=== PATIENT | male | born 1980 | race Caucasian/White ===

== ENCOUNTER 2016-09-19 17:50 | Emergency (ER) | payer OTHER ==
[~2016-09-19] VITALS: Ht 175.3 cm; Wt 109.0 kg
[2016-09-19 17:56] VITALS: TEMP 36.7; Ht 175.3 cm; Wt 109.0 kg
[2016-09-19] MEDS ORDERED: ONDANSETRON INJ 2 MG/ML 2 ML VIAL IV STA (18:05)
[2016-09-19] MEDS ORDERED: SODIUM CHLORIDE 0.9% 1000ML 2,000 ML IV STA (18:05)
[2016-09-19] MEDS ORDERED: MoRPHine SULFATE 10 MG/ML CARP/VIAL IV STA (18:05)
[2016-09-19] MEDS ORDERED: HYDROmorphone INJ 1 MG/ML SYR IV STA ×2 (18:41→19:19)
[2016-09-19] MEDS ORDERED: ASPI81TA28 PO (18:44)
[2016-09-19] MEDS ORDERED: KETO10TA PO ×2 (18:44→19:47)
[2016-09-19] MEDS ORDERED: METO50TA7 PO (18:44)
[2016-09-19 18:47] LABS: BASO % 0.5 %; BASO ABS # 0.06 K/uL (0-0.2); COMPLETE YES; EOS % 2.5 %; HEMATOCRIT 51.4 % (42-52); IG% 0.5 %; LYMPH % 34.1 %; LYMPH ABS # 3.93 K/uL (1.2-3.4); MEAN CELL VOLUME 97.3 fL (80-100); MEAN CORPUSCULAR HEMOGLOBIN 34.5 pg (25-34); MEAN CORPUSCULAR HGB CONC 35.4 g/dl (32-36); MEAN PLATELET VOLUME 10.1 fL (7.4-10.4); MONO % 9.7 %; NEUT % 52.7 %; PLATELET COUNT 254 K/uL (130-400); RED BLOOD COUNT 5.28 M/uL (4.7-6.1); WHITE BLOOD COUNT 11.51 K/uL (4.8-10.8)
[2016-09-19 18:52] LABS: URINE APPEARANCE CLOUDY (CLEAR); URINE BILIRUBIN NEG (NEG); URINE COLOR DK YELLOW; URINE EPITHELIAL CELL AUTO >30 /lpf (0-5); URINE NITRITE NEG (NEG); URINE SPECIFIC GRAVITY 1.039 (1.000-1.030); UROBILINOGEN NEG (NEG)
[2016-09-19 18:54] LABS: MANUAL MICROSCOPIC REQUIRED? NO; REVIEW REQ? YES
[2016-09-19 19:07] LABS: BUN/CREATININE RATIO 15.7 (10-20); CREATININE 1.2 mg/dl (0.60-1.40)
--- NOTE | 2016-09-19 19:19 | DIAGNOSTIC IMAGING REPORT ---
KUB CLINICAL HISTORY: EVALUATE FOR OBSTRUCTION/HISTORY OF STONES COMPARISON STUDY: No previous studies for comparison. FINDINGS: The soft tissues, psoas shadows, renal outlines and intestinal gas pattern appear normal. There is no evidence for bowel obstruction. No abnormal abdominal calcifications are seen. IMPRESSION: Normal study. Electronically signed by: Tyree Isable M.D. 09/19/2016 7:17 PM Dictated Date/Time: 09/19/2016 7:17 PM
[2016-09-19 19:56] VITALS: BP 187/119; PULSE 74; O2SAT 95
--- NOTE | 2016-09-19 21:33 | EMERGENCY ROOM VISIT NOTE ---
History First contact with patient: 18:02 Chief Complaint: KIDNEY STONE Stated Complaint: PAIN IN SIDE AND GROIN History of Present Illness The patient is a 35 year old male who presents to the Emergency Room with complaints of a persistent right-sided kidney pain. The patient reports a history of kidney stones. His current episode started around 2 AM. He did pass 2 stones this morning, and his pain resolved. The patient reports that he drove here from [place] to shop for [employer] and developed sudden onset of right flank pain approximately one hour ago. He reports that the pain is not improving. The patient is crying under the management of Dr. Quinteros, urologist in [place]. He denies any vomiting, fever or recent urinary symptoms. He rates his discomfort a 6 out of 10 in triage. Review of Systems HEENT: Denies dizziness, visual problems, hearing loss, tinnitus. Denies difficulty swallowing or oral lesions. PULMONARY: Denies cough, shortness of breath, sputum production or hemoptysis. CARDIOVASCULAR: Denies chest pain, palpitations, dyspnea on exertion, orthopnea or peripheral edema. GASTROINTESTINAL: Denies diarrhea, constipation or anterior abdominal pain. Reports right flank pain. GENITOURINARY: Denies recent dysuria, frequency, urgency or nocturia. NEUROLOGIC: Denies history of epilepsy, CVA, TIA or chronic headaches. MUSCULOSKELETAL: Denies history of joint tenderness/swelling. SKIN: Denies rashes or lesions. PSYCHIATRIC: Denies history of depression or mental illness. ENDOCRINE: Denies history of diabetes or thyroid disorders. Past Medical/Surgical History Medical Problems: (1) Kidney stones Surgical Problems: (1) History of appendectomy Family History Patient reports no known family medical history. Social History Smoking Status: Current Every Day Smoker Alcohol Use: occasionally Marital Status: Housing Status: lives with significant other Current/Historical Medications Scheduled Aspirin (Aspirin Ec), 81 MG PO DAILY Metoprolol Succ (Toprol Xl) (Toprol-Xl), 50 MG PO DAILY Scheduled PRN Ketorolac (Toradol), 10 MG PO TID PRN for Pain Ketorolac Tromethamine (Toradol), 10 MG PO Q8 PRN for Pain Allergies Coded Allergies: Penicillins (Verified Allergy, Unknown, ., 11/11/14) Physical Exam Vital Signs Date Time Temp Pulse Resp B/P (MAP) Pulse Ox O2 Delivery O2 Flow Rate FiO2 09/19/16 19:56 74 18 187/119 95 09/19/16 19:25 75 20 174/142 95 Room Air 09/19/16 17:56 36.7 118 18 179/132 95 Room Air Physical Exam CONSTITUTIONAL: Healthy and well nourished. Alert and oriented X 3 with positive affect. Patient appears in severe discomfort from pain. HEENT: Normocephalic, atraumatic. Pupils equal, round and reactive. No scleral icterus or conjunctival injection/pallor. NECK: Full active range of motion without discomfort. RESPIRATORY: Clear to auscultation bilaterally with no wheezing, crackles, rhonchi or stridor. CARDIOVASCULAR: Regular rate and rhythm with no murmurs, rubs or gallops. GASTROINTESTINAL: Bowel sounds present in all quadrants. Abdomen is soft and nontender to palpation. Negative CVA tenderness. MUSCULOSKELETAL: Full range of motion of all joints without discomfort. INTEGUMENTARY: No rash or other significant dermatologic conditions noted. HEMATOLOGIC: No ecchymosis or petechiae. NEUROLOGIC: No focal neurologic deficits noted. Medical Decision & Procedures ER Provider Diagnostic Interpretation: My interpretation of a KUB x-ray does not show any obvious ureteral calculi, obstructive pattern or free air. Radiologist report is as follows: KUB CLINICAL HISTORY: EVALUATE FOR OBSTRUCTION/HISTORY OF STONES COMPARISON STUDY: No previous studies for comparison. FINDINGS: The soft tissues, psoas shadows, renal outlines and intestinal gas pattern appear normal. There is no evidence for bowel obstruction. No abnormal abdominal calcifications are seen. IMPRESSION: Normal study. Laboratory Results 09/19/16 18:15 Red Blood Count 5.28, Mean Corpuscular Volume 97.3, Mean Corpuscular Hemoglobin 34.5, Mean Corpuscular Hemoglobin Concent 35.4, Mean Platelet Volume 10.1, Neutrophils (%) (Auto) 52.7, Lymphocytes (%) (Auto) 34.1, Monocytes (%) (Auto) 9.7, Eosinophils (%) (Auto) 2.5, Basophils (%) (Auto) 0.5, Neutrophils # (Auto) 6.05, Lymphocytes # (Auto) 3.93, Monocytes # (Auto) 1.12, Eosinophils # (Auto) 0.29, Basophils # (Auto) 0.06 09/19/16 18:15 Test 09/19/16 18:09/19/16 18:20 White Blood Count 11.51 K/uL (4.8-10.8) Red Blood Count 5.28 M/uL (4.7-6.1) Hemoglobin 18.2 g/dL (14.0-18.0) Hematocrit 51.4 % (42-52) Mean Corpuscular Volume 97.3 fL (80-100) Mean Corpuscular Hemoglobin 34.5 pg (25-34) Mean Corpuscular Hemoglobin Concent 35.4 g/dl (32-36) Platelet Count 254 K/uL (130-400) Mean Platelet Volume 10.1 fL (7.4-10.4) Neutrophils (%) (Auto) 52.7 % Lymphocytes (%) (Auto) 34.1 % Monocytes (%) (Auto) 9.7 % Eosinophils (%) (Auto) 2.5 % Basophils (%) (Auto) 0.5 % Neutrophils # (Auto) 6.05 K/uL (1.4-6.5) Lymphocytes # (Auto) 3.93 K/uL (1.2-3.4) Monocytes # (Auto) 1.12 K/uL (0.11-0.59) Eosinophils # (Auto) 0.29 K/uL (0-0.5) Basophils # (Auto) 0.06 K/uL (0-0.2) RDW Standard Deviation 47.2 fL (36.4-46.3) RDW Coefficient of Variation 13.2 % (11.5-14.5) Immature Granulocyte % (Auto) 0.5 % Immature Granulocyte # (Auto) 0.06 K/uL (0.00-0.02) Anion Gap 11.0 mmol/L (3-11) Est Creatinine Clear Calc Drug Dose 103.6 ml/min Estimated GFR () 89.6 Estimated GFR (Non- 77.3 BUN/Creatinine Ratio 15.7 (10-20) Calcium Level 9.0 mg/dl (8.5-10.1) Total Bilirubin 0.2 mg/dl (0.2-1) Aspartate Amino Transf (AST/SGOT) 30 U/L (15-37) Alanine Aminotransferase (ALT/SGPT) 77 U/L (12-78) Alkaline Phosphatase 109 U/L (45-117) Total Protein 8.8 gm/dl (6.4-8.2) Albumin 4.4 gm/dl (3.4-5.0) Globulin 4.4 gm/dl (2.5-4.0) Albumin/Globulin Ratio 1.0 (0.9-2) Lipase 302 U/L (73-393) Chemistry Specimen Hemolysis Urine Color DK YELLOW Urine Appearance CLOUDY (CLEAR) Urine pH 5.0 (4.5-7.5) Urine Specific [place] 1.039 (1.000-1.030) Urine Protein 2+ (NEG) Urine Glucose (UA) NEG (NEG) Urine Ketones TRACE (NEG) Urine Occult Blood 3+ (NEG) Urine Nitrite NEG (NEG) Urine Bilirubin NEG (NEG) Urine Urobilinogen NEG (NEG) Urine Leukocyte Esterase NEG (NEG) Urine WBC (Auto) 5-10 /hpf (0-5) Urine RBC (Auto) >30 /hpf (0-4) Urine Hyaline Casts (Auto) 1-5 /lpf (0-5) Urine Epithelial Cells (Auto) >30 /lpf (0-5) Urine Bacteria (Auto) NEG (NEG) Urine Pathogenic Casts /lpf (0) The above labs were reviewed. Urinalysis shows a contaminated sample, however there is 3+ hematuria and no nitrite/leukocyte esterase. Further lab work shows a mild leukocytosis no left shift. Bandemia is present. BUN is elevated at 19 with a creatinine of 1.2. Glucose is 118. Medications Administered Medications (Trade) Dose Ordered Sig/Ronn Route Start Time Stop Time Status Last Admin Dose Admin Morphine Sulfate (MoRPHine SULFATE INJ) 8 mg NOW STAT IV 09/19/16 18:05 09/19/16 18:07 DC 09/19/16 18:05 8 MG Ondansetron HCl (Zofran Inj) 4 mg NOW STAT IV 09/19/16 18:05 09/19/16 18:08 DC 09/19/16 18:05 4 MG Sodium Chloride 2,000 ml @ 999 mls/hr Q2H1M STAT IV 09/19/16 18:05 09/19/16 20:05 DC 09/19/16 18:05 999 MLS/HR Hydromorphone HCl (Dilaudid Inj) 1 mg NOW STAT IV 09/19/16 18:41 09/19/16 18:42 DC 09/19/16 18:41 1 MG Hydromorphone HCl (Dilaudid Inj) 1 mg NOW STAT IV 09/19/16 19:19 09/19/16 19:20 DC 09/19/16 19:40 1 MG Procedure 1. IV hydration: The patient received a normal saline 2 L bolus 2. IV medications: The patient was initially administered morphine 8 mg and Zofran 4 mg IVP. If no improvement in pain, the patient was administered Dilaudid 1 mg IVP. He was administered an additional Dilaudid 1 mg IVP before his pain significantly dropped off. ED Course Patient history and physical exam were performed. Nurse's notes were reviewed. Vital signs were reviewed, showing a blood pressure 179/132. Pulse rate is 118 with an O2 saturation of 95% on room air. I did review a portion of prior medical records, showing that the patient has documentation and imaging studies showing evidence for punctate renal calculi. IV access was established, and labs were drawn. The patient was hydrated with normal saline, and received IV medications as discussed in the previous Procedure section. Review of labs do not show any acute findings. Urinalysis shows hematuria. This was a contaminated sample, however there is no obvious evidence for infection. A KUB x-ray did not show any ureteral calculi. Patient received several rounds of morphine and Dilaudid. The patient was going to the bathroom frequently toward the end of his evaluation. He eventually walked out of the bathroom, diaphoretic, but stating "I think I passed it." He did report significant improving pain and requested discharge home. The patient was encouraged to follow-up with his urologist for any recurrent pain. He was instructed to seek further emergent reevaluation for uncontrollable pain, vomiting or developing fever. The patient refused any prescription narcotics, but did request a prescription refill for his Toradol. He was prescribed Toradol 10 mg every 8 hours as needed for pain. The patient was happy with plan of care, voiced understanding of all discharge instructions , and denied any significant pain at the time of discharge. The patient was advised of his elevated blood pressure reading. He reports that he did not take his blood pressure medication this morning because of the pain, and suspects that his pressure is elevated as well because of pain. I did encourage him to his blood pressure rechecked by his family doctor. Medical Decision The patient does have a documented prior history of kidney stones. The patient was in notable discomfort, and reports that his pain is similar to all prior episodes. The patient is currently afebrile. His urinalysis does show evidence for hematuria. He has a mild leukocytosis, likely stress induced. Glucose is also elevated. The patient does not have any acute findings on KUB, his symptoms are most consistent with renal colic. Do not suspect any additional intra-abdominal etiology such as appendicitis, diverticulitis, cholecystitis, hepatitis or peritonitis. He has no CVA tenderness to suggest pyelonephritis. Impression Primary Impression: Renal colic on right side Additional Impression: Hypertension Departure Information Prescriptions Ketorolac (Toradol) 10 Mg Tab 10 MG PO TID Y for Pain, #30 TAB Prov: Jose Alberto Carrera PA 09/19/16 Referrals No Doctor, Assigned (PCP) Patient Instructions My [facility] Problem Qualifiers Additional Impression: Hypertension Hypertension type: essential hypertension Qualified Codes: I10 - Essential ( primary) hypertension
== END 2016-09-19 19:52 | disposition home or self-care (01) ==
LOC: C.EDB 17:51 → C.EDC 19:52
DX: N23 Unspecified renal colic (principal); I10 Essential (primary) hypertension; F17.200 Nicotine dependence, unspecified, uncomplicated; Z79.82 Long term (current) use of aspirin

== ENCOUNTER 2016-10-17 12:16 | Emergency (ER) | payer OTHER ==
[~2016-10-17] VITALS: Ht 175.3 cm; Wt 110.0 kg
[~2016-10-17 12:16] MED LIST: ASPI81TA28 PO; KETO10TA PO; METO50TA7 PO
[2016-10-17 12:37] VITALS: Ht 175.3 cm; Wt 110.0 kg
[2016-10-17] MEDS ORDERED: KETOROLAC TROMETHAMINE 30 MG/ML VIAL IV STA (12:48)
[2016-10-17] MEDS ORDERED: SODIUM CHLORIDE 0.9% 1000ML 1,000 ML IV STA (12:48)
[2016-10-17] MEDS ORDERED: ONDANSETRON INJ 2 MG/ML 2 ML VIAL IV STA (12:48)
[2016-10-17 13:09] LABS: BASO % 0.6 %; BASO ABS # 0.05 K/uL (0-0.2); COMPLETE YES; EOS % 2.6 %; HEMATOCRIT 55.4 % (42-52); IG% 0.7 %; LYMPH % 35.5 %; LYMPH ABS # 3.04 K/uL (1.2-3.4); MEAN CELL VOLUME 97.7 fL (80-100); MEAN CORPUSCULAR HGB CONC 33.8 g/dl (32-36); MONO % 9.3 %; NEUT % 51.3 %; PLATELET COUNT 236 K/uL (130-400); RED BLOOD COUNT 5.67 M/uL (4.7-6.1); WHITE BLOOD COUNT 8.57 K/uL (4.8-10.8)
[2016-10-17 13:13] LABS: URINE APPEARANCE CLEAR (CLEAR); URINE BILIRUBIN NEG (NEG); URINE COLOR YELLOW; URINE EPITHELIAL CELL AUTO 0-5 /lpf (0-5); URINE NITRITE NEG (NEG); URINE SPECIFIC GRAVITY 1.022 (1.000-1.030); UROBILINOGEN NEG (NEG); ZZUR CULT IF INDIC CLEAN CATCH NO
[2016-10-17 13:16] LABS: MANUAL MICROSCOPIC REQUIRED? NO; REVIEW REQ? NO
[2016-10-17 13:29] LABS: ALT/SGPT 92 U/L (12-78); BLOOD UREA NITROGEN 17 mg/dl (7-18); CALCIUM 9.4 mg/dl (8.5-10.1); CARBON DIOXIDE 27 mmol/L (21-32); CHLORIDE 104 mmol/L (98-107); GLUCOSE 114 mg/dl (70-99); POTASSIUM 3.8 mmol/L (3.5-5.1); SODIUM 138 mmol/L (136-145)
[2016-10-17 13:32] LABS: ALKALINE PHOSPHATASE 86 U/L (45-117); AST/SGOT 41 U/L (15-37)
--- NOTE | 2016-10-17 13:36 | DIAGNOSTIC IMAGING REPORT ---
ABD/PELVIS WITHOUT FOR STONE CT DOSE: 1791.19 mGy.cm HISTORY: Pain flank pain TECHNIQUE: Multiaxial CT images of the abdomen and pelvis were performed without the use of intravenous and oral contrast according to the standard department stone protocol. COMPARISON STUDY: 11/11/2014 FINDINGS: The lung bases are clear. Moderate hepatomegaly with diffuse fatty infiltration. This is stable compared to the prior exam. Prior cholecystectomy. Pancreas is uniform. Kidneys demonstrate several punctate calcifications. No evidence for hydronephrosis. 1.5 cm nodular density lower pole right kidney unchanged. No evidence for an obstructing urinary tract calculus. Bladder is midline. Bowel pattern throughout is nonobstructive. Small fat-containing periumbilical hernia. No evidence for bowel containment or obstructive characteristics. IMPRESSION: 1. Hepatomegaly with findings of fatty replacement. This is unchanged from the prior exam. 2. Several nonobstructing renal calcifications unchanged from the prior study. 3. No evidence for an obstructing urinary tract calculus. 4. Study is otherwise negative. The above report was generated using voice recognition software. It may contain grammatical, syntax or spelling errors. Electronically signed by: Tyree Isabel M.D. 10/17/2016 1:34 PM Dictated Date/Time: 10/17/2016 1:30 PM
--- NOTE | 2016-10-17 13:56 | EMERGENCY ROOM VISIT NOTE ---
History Report prepared by Prasanthiblyn: Evelyn Pope Under the Supervision of: Dr. Alessandro Ward D.O. First contact with patient: 12:48 Chief Complaint: KIDNEY STONE Stated Complaint: KIDNEY STONE History of Present Illness The patient is a 35 year old male who presents to the Emergency Room with complaints of severe and persistent flank pain starting last night. The patient reports passing 2 stones last night. He has a history of multiple kidney stones and reports similar symptoms today. The patient denies fevers, chills, or any other complaints. Source of History: patient Onset: last night Position: other (flank) Symptom Intensity: severe Timing: other (persistent) Associated Symptoms: No fevers, No chills Review of Systems See HPI for pertinent positives & negatives. A total of 10 systems reviewed and were otherwise negative. Past Medical & Surgical Medical Problems: (1) Kidney stones Surgical Problems: (1) History of appendectomy Family History Patient reports no known family medical history. Social History Smoking Status: Current Every Day Smoker Alcohol Use: occasionally Marital Status: Housing Status: lives with significant other Current/Historical Medications Scheduled Aspirin (Aspirin Ec), 81 MG PO DAILY Metoprolol Succ (Toprol Xl) (Toprol-Xl), 50 MG PO DAILY Scheduled PRN Ketorolac (Toradol), 10 MG PO TID PRN for Pain Allergies Coded Allergies: Metoclopramide (Unverified Allergy, Unknown, ., 10/17/16) Penicillins (Verified Allergy, Unknown, ., 10/17/16) Physical Exam Vital Signs Date Time Temp Pulse Resp B/P (MAP) Pulse Ox O2 Delivery O2 Flow Rate FiO2 10/17/16 14:04 36.6 93 20 157/123 94 10/17/16 13:34 188/111 10/17/16 12:37 36.6 113 22 97 Room Air Physical Exam CONSTITUTIONAL/VITAL SIGNS: Reviewed / noted above. GENERAL: Non-toxic in appearance. INTEGUMENTARY: Warm, dry, and [place]. HEAD: Normocephalic. EYES: without scleral icterus or trauma. ENT/OROPHARYNX: clear and moist. LYMPHADENOPATHY/NECK: Is supple without lymphadenopathy or meningismus. RESPIRATORY: Lungs clear and equal. CARDIOVASCULAR: Regular rate and rhythm. GI/ABDOMEN: Soft and nontender. No organomegaly or pulsatile mass. No rebound or guarding. Normal bowel sounds. EXTREMITIES: Warm and well perfused. BACK: No CVA tenderness. NEUROLOGICAL: Intact without focal deficits. PSYCHIATRIC: normal affect. MUSCULOSKELETAL: Normally developed with good muscle tone. Medical Decision & Procedures ER Provider Diagnostic Interpretation: CT results as stated below per my review and radiologist interpretation: ABD/PELVIS WITHOUT FOR STONE CT DOSE: 1791.19 mGy.cm HISTORY: Pain flank pain TECHNIQUE: Multiaxial CT images of the abdomen and pelvis were performed without the use of intravenous and oral contrast according to the standard department stone protocol. COMPARISON STUDY: 11/11/2014 FINDINGS: The lung bases are clear. Moderate hepatomegaly with diffuse fatty infiltration. This is stable compared to the prior exam. Prior cholecystectomy. Pancreas is uniform. Kidneys demonstrate several punctate calcifications. No evidence for hydronephrosis. 1.5 cm nodular density lower pole right kidney unchanged. No evidence for an obstructing urinary tract calculus. Bladder is midline. Bowel pattern throughout is nonobstructive. Small fat-containing periumbilical hernia. No evidence for bowel containment or obstructive characteristics. IMPRESSION: 1. Hepatomegaly with findings of fatty replacement. This is unchanged from the prior exam. 2. Several nonobstructing renal calcifications unchanged from the prior study. 3. No evidence for an obstructing urinary tract calculus. 4. Study is otherwise negative. The above report was generated using voice recognition software. It may contain grammatical, syntax or spelling errors. Electronically signed by: Tyree Isabel M.D. 10/17/2016 1:34 PM Dictated Date/Time: 10/17/2016 1:30 PM Laboratory Results 10/17/16 12:50 Red Blood Count 5.67, Mean Corpuscular Volume 97.7, Mean Corpuscular Hemoglobin 33.0, Mean Corpuscular Hemoglobin Concent 33.8, Mean Platelet Volume 10.0, Neutrophils (%) (Auto) 51.3, Lymphocytes (%) (Auto) 35.5, Monocytes (%) (Auto) 9.3, Eosinophils (%) (Auto) 2.6, Basophils (%) (Auto) 0.6, Neutrophils # (Auto) 4.40, Lymphocytes # (Auto) 3.04, Monocytes # (Auto) 0.80, Eosinophils # (Auto) 0.22, Basophils # (Auto) 0.05 10/17/16 12:50 Test 10/17/16 12:50 White Blood Count 8.57 K/uL (4.8-10.8) Red Blood Count 5.67 M/uL (4.7-6.1) Hemoglobin 18.7 g/dL (14.0-18.0) Hematocrit 55.4 % (42-52) Mean Corpuscular Volume 97.7 fL (80-100) Mean Corpuscular Hemoglobin 33.0 pg (25-34) Mean Corpuscular Hemoglobin Concent 33.8 g/dl (32-36) Platelet Count 236 K/uL (130-400) Mean Platelet Volume 10.0 fL (7.4-10.4) Neutrophils (%) (Auto) 51.3 % Lymphocytes (%) (Auto) 35.5 % Monocytes (%) (Auto) 9.3 % Eosinophils (%) (Auto) 2.6 % Basophils (%) (Auto) 0.6 % Neutrophils # (Auto) 4.40 K/uL (1.4-6.5) Lymphocytes # (Auto) 3.04 K/uL (1.2-3.4) Monocytes # (Auto) 0.80 K/uL (0.11-0.59) Eosinophils # (Auto) 0.22 K/uL (0-0.5) Basophils # (Auto) 0.05 K/uL (0-0.2) RDW Standard Deviation 48.7 fL (36.4-46.3) RDW Coefficient of Variation 13.7 % (11.5-14.5) Immature Granulocyte % (Auto) 0.7 % Immature Granulocyte # (Auto) 0.06 K/uL (0.00-0.02) Urine Color YELLOW Urine Appearance CLEAR (CLEAR) Urine pH 5.0 (4.5-7.5) Urine Specific [place] 1.022 (1.000-1.030) Urine Protein 2+ (NEG) Urine Glucose (UA) NEG (NEG) Urine Ketones NEG (NEG) Urine Occult Blood NEG (NEG) Urine Nitrite NEG (NEG) Urine Bilirubin NEG (NEG) Urine Urobilinogen NEG (NEG) Urine Leukocyte Esterase NEG (NEG) Urine WBC (Auto) 1-5 /hpf (0-5) Urine RBC (Auto) 0-4 /hpf (0-4) Urine Hyaline Casts (Auto) 1-5 /lpf (0-5) Urine Epithelial Cells (Auto) 0-5 /lpf (0-5) Urine Bacteria (Auto) NEG (NEG) Anion Gap 7.0 mmol/L (3-11) Est Creatinine Clear Calc Drug Dose 104.0 ml/min Estimated GFR () 89.6 Estimated GFR (Non- 77.3 BUN/Creatinine Ratio 14.0 (10-20) Calcium Level 9.4 mg/dl (8.5-10.1) Total Bilirubin 0.5 mg/dl (0.2-1) Direct Bilirubin < 0.1 mg/dl (0-0.2) Aspartate Amino Transf (AST/SGOT) 41 U/L (15-37) Alanine Aminotransferase (ALT/SGPT) 92 U/L (12-78) Alkaline Phosphatase 86 U/L (45-117) Total Protein 9.0 gm/dl (6.4-8.2) Albumin 4.7 gm/dl (3.4-5.0) Lipase 201 U/L (73-393) Laboratory results as stated above per my review. Medications Administered Medications (Trade) Dose Ordered Sig/Ronn Route Start Time Stop Time Status Last Admin Dose Admin Sodium Chloride 1,000 ml @ 999 mls/hr Q1H1M STAT IV 10/17/16 12:48 10/17/16 13:48 DC 10/17/16 12:48 999 MLS/HR Ondansetron HCl (Zofran Inj) 4 mg NOW STAT IV 10/17/16 12:48 10/17/16 13:00 DC 10/17/16 12:48 4 MG Ketorolac Tromethamine (Toradol Inj) 30 mg NOW STAT IV 10/17/16 12:48 10/17/16 13:00 DC 10/17/16 12:48 30 MG ED Course 1248: Previous medical records were reviewed. The patient was evaluated in room B02. A complete history and physical examination was performed. Toradol Inj 30 mg IV, Zofran Inj 4 mg IV, Sodium Chloride 1000 ml @ 999 mls/hr IV 1350: On reevaluation, the patient is resting comfortably. I discussed the results and findings with the patient. He verbalized agreement of the treatment plan. He was discharged home. Medical Decision Medication Reconciliation: I attest that I have personally reviewed the patient' s current medication list. Blood pressure Screening: Patient was found to have an elevated blood pressure and was referred to their primary doctor for recheck and further treatment. Differential considered: pancreatitis, hepatitis, acute cholecystitis, AAA, UTI , pyelonephritis, kidney stones, appendicitis, diverticulitis, shingles, bowel obstruction, mesenteric ischemia, intussusception,hernia, testicular torsion. This is a 35-year-old male who presents to the ED with a chief complaint of "passing another kidney stone". The patient states that he has passed 100s of them. His urologist is in [place]. [place] address is from [place]. The patient has normal blood work, urine and CT scan. His exam was unremarkable. His overall visit was concerning for drug-seeking behavior. He was here recently for the same symptoms and only had a KUB. He is felt to be stable for discharge. Impression Primary Impression: Flank pain Scribe Attestation The scribe's documentation has been prepared under my direction and personally reviewed by me in its entirety. I confirm that the note above accurately reflects all work, treatment, procedures, and medical decision making performed by me. Departure Information Dispostion Home / Self-Care Referrals No Doctor, Assigned (PCP) Forms HOME CARE DOCUMENTATION FORM, IMPORTANT VISIT INFORMATION Patient Instructions My [facility] Additional Instructions Follow-up with your doctor for further care and evaluation in 1-2 days. Return to the emergency department for worsening or new symptoms or any concerns. You have been examined and treated today on an emergency basis only. This is not a substitute for, or an effort to provide, complete comprehensive medical care. It is impossible to recognize and treat all injuries or illnesses in a single emergency department visit. It is therefore important that you follow up closely with your doctor. Call as soon as possible for an appointment.
[2016-10-17 14:04] VITALS: BP 157/123; PULSE 93; TEMP 36.6; O2SAT 94
== END 2016-10-17 14:05 | disposition home or self-care (01) ==
LOC: C.EDB 12:17
DX: R10.30 Lower abdominal pain, unspecified (principal); F17.200 Nicotine dependence, unspecified, uncomplicated; Z87.442 Personal history of urinary calculi; Z98.890 Other specified postprocedural states; Z79.82 Long term (current) use of aspirin; Z79.899 Other long term (current) drug therapy; Z88.0 Allergy status to penicillin; Z88.8 Allergy status to other drugs, medicaments and biological substances